=== PATIENT | male | born 1960 | race Caucasian/White ===

== ENCOUNTER 2018-03-11 17:14 | Inpatient (IN) | payer MEDICAID ==
[~2018-03-11] VITALS: Ht 198.1 cm; Wt 136.0 kg
[2018-03-11] MEDS ORDERED: ASPirin 81 mg TAB PO ONE (17:45)
[2018-03-11 17:48] LABS: Basophils # (auto) 0.1 uL; Eosinophils # (auto) 0.2 uL; Eosinophils % (auto) 2.3 % (0.0-7.0); Hematocrit 41.6 % (41.0-53.0); Hemoglobin 14.3 g/dL (13.5-17.5); Lymphocytes # (auto) 3.1 uL; Lymphocytes % (auto) 33.5 % (10.0-50.0); Mean Corpuscular Hemoglobin 33.9 pg (28.0-32.0); Mean Corpuscular Hgb Conc. 34.4 g/dL (32.0-36.0); Mean Corpuscular Volume 98.6 fL (80.0-100.0); Monocytes # (auto) 0.7 uL; Monocytes % (auto) 7.4 % (0.0-12.0); Neutrophils # (auto) 5.2 uL; Neutrophils % (auto) 55.8 % (37.0-80.0); Nucleated Red Blood Cells % 0.1 %; Platelet Count (auto) 245 10^3/uL (140-450); Red Blood Cells 4.22 10^6/uL (4.5-5.90); Red Cell Distribution Width 12.9 % (11.8-14.3); White Blood Cell 9.4 10^3/uL (4.4-10.8)
[2018-03-11] MEDS ORDERED: SODIUM CHLORIDE 0.9% 500 ML IV ONE (18:00)
[2018-03-11 18:03] LABS: Albumin 3.9 g/dL (3.4-5.0); BUN/Creatinine Ratio 12.4; Calcium 8.4 mg/dL (8.5-10.1); Magnesium 2.1 mg/dL (1.6-2.6); Potassium 4.4 mmol/L (3.5-5.1)
[2018-03-11 18:08] LABS: Bilirubin, Total 1.4 mg/dL (0.2-1.0); Total Protein 7.7 g/dL (6.4-8.2)
[2018-03-11] MEDS ORDERED: LORazepam 2MG/ML-1ML VIAL IV ONE (18:15)
[2018-03-11] MEDS ORDERED: LABETALOL HCL 5 MG/ML ML 20ML VIAL IV ONE (18:45)
[2018-03-12] VITALS (7 sets, daily range): BP systolic 98–139; BP diastolic 54–80
[2018-03-12] MEDS ORDERED: MORPHINE SULFATE 4 MG/ML SYR/VIAL IV PRN (01:15)
[2018-03-12] MEDS ORDERED: NITROGLYCERIN 0.4 MG SL TAB SL PRN (01:15)
[2018-03-12] MEDS ORDERED: ONDANSETRON HCL 4 MG/2 ML VIAL IV PRN (02:15)
[2018-03-12] MEDS ORDERED: ACETAMINOPHEN 500 MG TAB PO PRN (02:15)
[2018-03-12 04:43] LABS: Urine Bacteria FEW /hpf (None Seen); Urine Blood Negative /uL (Negative); Urine Hyaline Cast FEW /lpf (0 - 2); Urine Mucus FEW (None Seen); Urine Specific Gravity 1.026 (1.001-1.035); Urine WBC 17 /hpf (0 - 3)
[2018-03-12 04:49] LABS: Alcohol, Urine < 3.0 mg/dL (0-5); Amphetamine Screen, Urine POSITIVE (NEGATIVE); Barbiturate Scree,Urine NEGATIVE (NEGATIVE); Benzodiazephine Screen, Urine NEGATIVE (NEGATIVE); Cannabinoid Screen, Urine POSITIVE (NEGATIVE); Cocaine Screen, Urine NEGATIVE (NEGATIVE); Opiate Scree,Urine NEGATIVE (NEGATIVE); Phencyclidine Screen, Urine NEGATIVE (NEGATIVE)
[2018-03-12] MEDS ORDERED: LISI10TA6 PO (05:43)
[2018-03-12] MEDS ORDERED: NYSTOIN10 EX (05:43)
[2018-03-12] MEDS ORDERED: POTA10TA51 PO (05:43)
[2018-03-12] MEDS ORDERED: FURO40TA4 PO (05:43)
[2018-03-12 07:20] LABS: Basophils # (auto) 0.1 uL; Basophils % (auto) 1.1 % (0.0-2.0); Eosinophils # (auto) 0.5 uL; Eosinophils % (auto) 5.2 % (0.0-7.0); Hematocrit 39.1 % (41.0-53.0); Hemoglobin 13.2 g/dL (13.5-17.5); Lymphocytes # (auto) 3.1 uL; Lymphocytes % (auto) 34.5 % (10.0-50.0); Mean Corpuscular Hemoglobin 33.3 pg (28.0-32.0); Mean Corpuscular Hgb Conc. 33.7 g/dL (32.0-36.0); Mean Corpuscular Volume 98.8 fL (80.0-100.0); Monocytes # (auto) 0.7 uL; Monocytes % (auto) 8.3 % (0.0-12.0); Neutrophils # (auto) 4.6 uL; Neutrophils % (auto) 50.9 % (37.0-80.0); Nucleated Red Blood Cells % 0.1 %; Platelet Count (auto) 222 10^3/uL (140-450); Red Blood Cells 3.95 10^6/uL (4.5-5.90); Red Cell Distribution Width 12.7 % (11.8-14.3)
[2018-03-12 07:38] LABS: BUN/Creatinine Ratio 14.2; Calcium 7.9 mg/dL (8.5-10.1); Potassium 4.3 mmol/L (3.5-5.1)
[2018-03-12] MEDS: FUROSEMIDE 40 MG TAB PO SCH (09:29)
[2018-03-12] MEDS: ENOXAPARIN SOD 100 MG/1 ML SYRINGE SC SCH ×2 (09:29→22:18)
[2018-03-12] MEDS: LISINOPRIL 10 MG TAB PO SCH (09:39)
[2018-03-12] MEDS ORDERED: ASPirin 81 mg TAB PO SCH (10:00)
[2018-03-12] MEDS ORDERED: METOPROLOL TARTRATE 25 MG TAB PO ONE (10:15)
[2018-03-12] MEDS ORDERED: SODIUM CHLORIDE 0.9% 500 ML IV ONE (10:15)
[2018-03-12] MEDS ORDERED: AMIODARONE HCL 200 MG TAB PO ONE (12:15)
[2018-03-12 19:59] LABS: Cholesterol 135 mg/dL (< 200); HDL Cholesterol 42 mg/dL (40-59); LDL Cholesterol 96 mg/dL (< 100); Triglycerides 49 mg/dL (< 150)
[2018-03-12] MEDS: METOPROLOL TARTRATE 25 MG TAB PO SCH (22:00)
[2018-03-12] MEDS ORDERED: ATORVASTATIN 20 MG TAB PO SCH (22:00)
[2018-03-12] MEDS: AMIODARONE HCL 200 MG TAB PO SCH (22:19)
[2018-03-13 05:00] VITALS: BP 94/55
[2018-03-13 08:00] VITALS: BP 106/65
[2018-03-13] MEDS ORDERED: ADENOSINE 114 MG in GIVE UN-DILUTED 0 ML IV STA (08:35)
[2018-03-13 09:00] VITALS: BP 106/60
[2018-03-13] MEDS: FUROSEMIDE 40 MG TAB PO SCH (10:00)
[2018-03-13] MEDS: LISINOPRIL 10 MG TAB PO SCH (10:00)
[2018-03-13] MEDS: METOPROLOL TARTRATE 25 MG TAB PO SCH (10:00)
[2018-03-13] MEDS: AMIODARONE HCL 200 MG TAB PO SCH (10:00)
[2018-03-13 10:11] VITALS: BP 119/47
[2018-03-13 12:39] VITALS: BP 101/48
[2018-03-13 13:22] LABS: BUN/Creatinine Ratio 12.1; Calcium 8.3 mg/dL (8.5-10.1); Potassium 5.2 mmol/L (3.5-5.1)
== END 2018-03-13 14:00 | disposition left against medical advice (07) | DRG 198 ==
LOC: ER 17:14 → TELE 17:15 → TELE-WESTW 03-12 02:42
PROVIDERS: ADMIT Nurse Practitioner Family; ATTEND Internal Medicine
DX: I25.10 Atherosclerotic heart disease of native coronary artery without angina pectoris (principal); N17.0 Acute kidney failure with tubular necrosis; E11.22 Type 2 diabetes mellitus with diabetic chronic kidney disease; I13.0 Hypertensive heart and chronic kidney disease with heart failure and stage 1 through stage 4 chronic kidney disease, or unspecified chronic kidney disease; I50.9 Heart failure, unspecified; I48.92 Unspecified atrial flutter; M79.18 Myalgia, other site; N18.9 Chronic kidney disease, unspecified; F15.10 Other stimulant abuse, uncomplicated; E78.5 Hyperlipidemia, unspecified; E66.9 Obesity, unspecified; F17.210 Nicotine dependence, cigarettes, uncomplicated; I25.2 Old myocardial infarction; Z82.49 Family history of ischemic heart disease and other diseases of the circulatory system; Z79.899 Other long term (current) drug therapy; Z79.82 Long term (current) use of aspirin; Z68.34 Body mass index [BMI] 34.0-34.9, adult
CPT/HCPCS: 36415; 71045; 78452; 80048; 80053; 80061; 80307; 81001; 83735; 83880; 84484; 85025; 85379; 93005; 93017; 93306; 96374; 96375; J0153